=== PATIENT | female | born 1960 | race Caucasian/White ===

== ENCOUNTER 2019-02-28 12:26 | Outpatient (CLI) | payer BC ==
--- NOTE | 2019-02-28 16:20 | Mammography Report ---
Reason: RT UPPER INNER BREAST LUMP Procedure Date: 02/28/2019 Accession Number: [id number] / [id number] Procedure: GRIS - Diagnostic Dig Bilat CPT Code: FULL RESULT: EXAM: Diagnostic Dig Bilat, Breast Unilateral Limited DATE: 02/28/2019 1:30 PM CLINICAL HISTORY: 58-year-old with palpable lump upper inner left breast. Subpectoral saline implants. TECHNIQUE: (B) - Bilateral CC and MLO views were obtained. Additional spot magnified left CC; MLO spot compression was not performed due to presence of implant. Real-time targeted ultrasound was performed in the region of symptoms. Sewage Screen Operator images were obtained. COMPARISON: 05/20/2018 through 02/02/2016 PARENCHYMAL PATTERN: (D) - The breasts demonstrate heterogeneously dense fibroglandular parenchyma bilaterally. FINDINGS: Bilateral breasts: There are intact bilateral subpectoral saline implants. There are no suspicious masses, calcifications, or areas of distortion. There is no mammographic finding in the region of palpable lump per patient marked with a skin marker posterior upper inner left breast. Left breast: Targeted ultrasound is performed in the region of palpable lump and focal tenderness in a wide area and only normal tissues are noted. Sewage Screen Operator normal images obtained from 10:00 12 cm from nipple. IMPRESSION: Bilateral breasts: Stable benign imaging findings. No imaging finding of concern in the left breast at site of symptoms. Benign findings. BI-RADS category 2. Recommend annual screening mammography. RECOMMENDATION: (ANNUAL) - Recommend routine annual screening mammography. Clinical follow-up for left breast symptoms is also recommended. BI-RADS CATEGORY: (2) - Benign Findings. STANDARD QUALIFYING STATEMENTS: 1. This examination was not reviewed with the aid of Computer-Aided Detection (CAD). 2. A negative or benign imaging report should not preclude biopsy if clinically suspicious findings are present. 3. Dense breasts may obscure an underlying neoplasm. 4. This examination was reviewed with the aid of 3D breast imaging (tomosynthesis).
--- NOTE | 2019-03-03 06:22 | Ultrasound Report ---
Reason: LEFT BREAST Procedure Date: 02/28/2019 Accession Number: [id number] / [id number] Procedure: US - Breast Unilateral Limited CPT Code: FULL RESULT: EXAM: Diagnostic Dig Bilat, Breast Unilateral Limited DATE: 02/28/2019 1:30 PM CLINICAL HISTORY: 58-year-old with palpable lump upper inner left breast. Subpectoral saline implants. TECHNIQUE: (B) - Bilateral CC and MLO views were obtained. Additional spot magnified left CC; MLO spot compression was not performed due to presence of implant. Real-time targeted ultrasound was performed in the region of symptoms. Measurement Coordinator images were obtained. COMPARISON: 05/20/2018 through 02/02/2016 PARENCHYMAL PATTERN: (D) - The breasts demonstrate heterogeneously dense fibroglandular parenchyma bilaterally. FINDINGS: Bilateral breasts: There are intact bilateral subpectoral saline implants. There are no suspicious masses, calcifications, or areas of distortion. There is no mammographic finding in the region of palpable lump per patient marked with a skin marker posterior upper inner left breast. Left breast: Targeted ultrasound is performed in the region of palpable lump and focal tenderness in a wide area and only normal tissues are noted. Measurement Coordinator normal images obtained from 10:00 12 cm from nipple. IMPRESSION: Bilateral breasts: Stable benign imaging findings. No imaging finding of concern in the left breast at site of symptoms. Benign findings. BI-RADS category 2. Recommend annual screening mammography. RECOMMENDATION: (ANNUAL) - Recommend routine annual screening mammography. Clinical follow-up for left breast symptoms is also recommended. BI-RADS CATEGORY: (2) - Benign Findings. STANDARD QUALIFYING STATEMENTS: 1. This examination was not reviewed with the aid of Computer-Aided Detection (CAD). 2. A negative or benign imaging report should not preclude biopsy if clinically suspicious findings are present. 3. Dense breasts may obscure an underlying neoplasm. 4. This examination was reviewed with the aid of 3D breast imaging (tomosynthesis).
== END 2019-02-28 12:27 | disposition home or self-care (01) ==
LOC: DI 12:26
PROVIDERS: ATTEND Physician Assistant
DX: N63.22 Unspecified lump in the left breast, upper inner quadrant (principal)
CPT/HCPCS: 76642; 77066

== ENCOUNTER 2020-01-14 13:58 | Outpatient (CLI) | payer BC ==
--- NOTE | 2020-01-14 17:38 | DEXA Report ---
Reason: POSTMENOPAUSAL Procedure Date: 01/14/2020 Accession Number: [id number] / [id number] Procedure: DEX - Dexa Spine and/or Hip CPT Code: Final Report FULL RESULT: PROCEDURE: Dexa Spine and/or Hip INDICATIONS: POSTMENOPAUSAL TECHNIQUE: Dual energy x-ray absorptiometry (DXA) was performed on a [employer] System. Regions measured are the AP Spine, femoral neck, and if needed forearm. COMPARISON: None. FINDINGS: Lumbar Spine: Bone Mineral Density 0.863 g/cm/cm,T score -2.6, osteoporosis Left Hip: Bone Mineral Density 0.794 g/cm/cm,T score -1.7, osteopenia Left Femoral Neck: Bone Mineral Density 0.725 g/cm/cm, T score -2.3, osteopenia (T score greater or equal to -1.0: NORMAL) (T score from -1.1 to -2.4: OSTEOPENIA) (T score less than or equal to -2.5 to: OSTEOPOROSIS) Impression: Osteoporosis puts the patient in a high-risk of fracture. Patients with diagnosis of osteoporosis or osteopenia should have regular bone mineral density assessment. For those eligible for Medicare, routine testing is allowed once every 2 years. Testing frequency can be increased for patients who have rapidly progressing disease or for those who are receiving medical therapy to restore bone mass. Reviewed by: Stephanie Donovan MD on 01/14/2020 5:37 PM PDT Approved by: Stephanie Donovan MD on 01/14/2020 5:37 PM PDT Station ID: [id number]
== END 2020-01-14 13:59 | disposition home or self-care (01) ==
LOC: DI 13:58
PROVIDERS: ATTEND Physician Assistant
DX: M81.0 Age-related osteoporosis without current pathological fracture (principal); M85.88 Other specified disorders of bone density and structure, other site
CPT/HCPCS: 77080

== ENCOUNTER 2020-02-11 13:55 | Outpatient (CLI) | payer BC ==
[2020-02-11 14:15] LABS: VBG PH 7.337 (7.31-7.41)
[2020-02-11 14:39] LABS: HB2 TOTAL 14.4 g/dL; HEMOGLOBIN A1C 0.49 g/dL; HEMOGLOBIN A1C % 5.3 % (4.6-6.2)
== END 2020-02-11 13:56 | disposition home or self-care (01) ==
LOC: LAB 13:55
PROVIDERS: ATTEND Physician Assistant
DX: E83.52 Hypercalcemia (principal); Z83.3 Family history of diabetes mellitus
CPT/HCPCS: 36415; 82330; 83036; 83970

== ENCOUNTER 2020-10-19 07:00 | Outpatient (CLI) | payer BC | END 2020-10-19 23:59 | disposition home or self-care (01) | LOC: LAB.R 07:00 | PROVIDERS: ATTEND Family Medicine | DX: R05 Cough (principal); Z20.822 Contact with and (suspected) exposure to COVID-19 ==

== ENCOUNTER 2021-02-12 09:07 | Outpatient (CLI) | payer BC ==
[2021-02-12 13:40] LABS: EOSINOPHILS # (AUTO) 0.2 10^3/uL (0.0-0.7); EOSINOPHILS % (AUTO) 3.7 %; HCT - HEMATOCRIT 44.2 % (37.0-47.0); LYMPHOCYTES # (AUTO) 1.5 10^3/uL (1.5-3.5); LYMPHOCYTES % (AUTO) 37.8 %; MEAN CORPUSCULAR HEMOGLOBIN 28.8 pg (27.0-31.0); MEAN CORPUSCULAR HGB CONC 31.7 g/dL (32.0-36.0); MEAN CORPUSCULAR VOLUME 90.9 fL (81.0-99.0); MEAN PLATELET VOLUME 12.7 fL (7.9-10.8); MONOCYTES # (AUTO) 0.3 10^3/uL (0.0-1.0); MONOCYTES % (AUTO) 6.4 %; NEUTROPHILS # (AUTO) 2.1 10^3/uL (1.5-6.6); NEUTROPHILS % (AUTO) 50.9 %; PLT - PLATELET COUNT 205 10^3/uL (130-450); RED BLOOD COUNT 4.86 10^6/uL (4.20-5.40); RED CELL DISTRIBUTION WIDTH 12.8 % (12.0-15.0); WHITE BLOOD COUNT 4.1 x10^3/uL (4.8-10.8)
[2021-02-12 13:55] LABS: ALBUMIN 4.3 g/dL (3.2-5.5); ALBUMIN/GLOBULIN RATIO 1.3 (1.0-2.2); ALKALINE PHOSPHATASE 52 IU/L (42-121); ALT ALANINE AMINOTRANSFERASE 23 IU/L (10-60); AST ASPARTATE AMINOTRANSFERASE 21 IU/L (10-42); BILIRUBIN,TOTAL 1.2 mg/dL (0.2-1.0); BUN - BLOOD UREA NITROGEN 18 mg/dL (6-20); CALCIUM 9.8 mg/dL (8.5-10.3); CARBON DIOXIDE - CO2 31 mmol/L (21-32); CHLORIDE 105 mmol/L (101-111); CHOL/HDL RATIO 3.5 (<4.4); CHOLESTEROL 199 mg/dL; CREATININE 0.7 mg/dL (0.4-1.0); GFR - MDRD 86 (>89); GLUCOSE 91 mg/dL (70-100); HDL CHOLESTEROL 57 mg/dL; LDL CHOLESTEROL,CALCULATED 110 mg/dL; LDL/HDL RATIO 1.9 (<4.4); POTASSIUM 4.1 mmol/L (3.5-5.0); SODIUM 142 mmol/L (135-145); TOTAL PROTEIN 7.6 g/dL (6.7-8.2); TRIGLYCERIDES 159 mg/dL; VLDL CHOLESTEROL 32 mg/dL
== END 2021-02-12 09:08 | disposition home or self-care (01) ==
LOC: LAB.N 09:07
PROVIDERS: ATTEND Family Medicine
DX: E78.5 Hyperlipidemia, unspecified (principal); E83.52 Hypercalcemia; K58.9 Irritable bowel syndrome, unspecified
CPT/HCPCS: 36415; 80053; 80061; 82306; 82330; 83721; 83970; 85025

== ENCOUNTER 2021-03-25 12:57 | Outpatient (CLI) | payer BC ==
--- NOTE | 2021-03-28 10:17 | Mammography Report ---
BILATERAL DIGITAL SCREENING MAMMOGRAM 3D/2D WITH AUGMENTATION: 03/25/2021 CLINICAL: Routine screening. Comparison is made to exams dated: 02/28/2019 ultrasound, 02/28/2019 mammogram - [facility], 05/20/2018 mammogram, 03/16/2017 mammogram, and 02/02/2016 mammogram - [facility]. There are scattered fibroglandular elements in both breasts. No significant masses, calcifications, or other findings are seen in either breast. There has been no significant interval change. IMPRESSION: NEGATIVE There is no mammographic evidence of malignancy. A 1 year screening mammogram is recommended. This exam was interpreted at Station ID: [id number]. NOTE: For mammograms, a report in lay terms will be sent to the patient. Approximately 15% of breast malignancies will not be visualized mammographically. In the management of a palpable breast mass, a negative mammogram must not discourage biopsy of a clinically suspicious lesion. Electronically Signed By: Hossein Corona M.D., jr/javier:03/25/2021 14:12:54 ACR BI-RADS Category 1: Negative 3341F PARENCHYMAL PATTERN: (A) - The breast(s) demonstrate(s) scattered fibroglandular densities. BI-RADS CATEGORY: (1) - 1 RECOMMENDATION: (ANNUAL) - Recommend routine annual screening mammography. [id number] 1 year screening LATERALITY: (B)
== END 2021-03-25 12:58 | disposition home or self-care (01) ==
LOC: DI 12:57
DX: Z12.31 Encounter for screening mammogram for malignant neoplasm of breast (principal)

== ENCOUNTER 2022-03-27 13:27 | Outpatient (CLI) | payer BC ==
--- NOTE | 2022-03-28 10:06 | Mammography Report ---
BILATERAL DIGITAL SCREENING MAMMOGRAM 3D/2D: 03/27/2022 CLINICAL: Routine screening. Implants removed 2020. Comparison is made to exams dated: 03/25/2021 mammogram, 02/28/2019 mammogram - [facility], 05/20/2018 mammogram, 03/16/2017 mammogram, and 02/02/2016 mammogram - [facility]. Both breasts are heterogeneously dense, which may obscure small masses (category c / 51-75% glandula r tissue). No significant masses, calcifications, or other findings are seen in either breast. Bilateral breast implants have been removed. IMPRESSION: NEGATIVE There is no mammographic evidence of malignancy. A 1 year screening mammogram is recommended. Based on the Tyrer Cuzick model (a risk assessment model) the patients lifetime risk is 9.3% and her 10 year risk is 3.6%. According to the ACR, ACS, and NCCN guidelines, an annual breast MRI exam ender g with mammogram is recommended if the patients lifetime risk is 20% or greater. This exam was interpreted at Station ID: [id number]. NOTE: For mammograms, a report in lay terms will be sent to the patient. Approximately 15% of breast malignancies will not be visualized mammographically. In the management of a palpable breast mass, a negative mammogram must not discourage biopsy of a clinically suspicious lesion. Electronically Signed By: Abram Rinaldi M.D. aty/:03/27/2022 22:39:44 ACR BI-RADS Category 1: Negative 3341F PARENCHYMAL PATTERN: (D) - The breast(s) demonstrate(s) heterogeneously dense fibroglandular thor faust. BI-RADS CATEGORY: (1) - 1 RECOMMENDATION: (ANNUAL) - Recommend routine annual screening mammography. [id number] 1 year screening LATERALITY: (B)
== END 2022-03-27 13:28 | disposition home or self-care (01) ==
LOC: DI 13:27
PROVIDERS: ATTEND Nurse Practitioner
DX: Z12.31 Encounter for screening mammogram for malignant neoplasm of breast (principal)

== ENCOUNTER 2022-06-26 07:19 | Outpatient (CLI) | payer BC ==
[2022-06-26 07:35] LABS: BASOPHILS % (AUTO) 0.9 %; EOSINOPHILS # (AUTO) 0.2 10^3/uL (0.0-0.7); EOSINOPHILS % (AUTO) 3.9 %; HGB - HEMOGLOBIN 14.7 g/dL (12.0-16.0); LYMPHOCYTES # (AUTO) 1.9 10^3/uL (1.5-3.5); MEAN CORPUSCULAR HEMOGLOBIN 29.5 pg (27.0-31.0); MEAN CORPUSCULAR HGB CONC 32.7 g/dL (32.0-36.0); MEAN CORPUSCULAR VOLUME 90.2 fL (81.0-99.0); MEAN PLATELET VOLUME 11.1 fL (7.9-10.8); MONOCYTES # (AUTO) 0.3 10^3/uL (0.0-1.0); MONOCYTES % (AUTO) 7.3 %; NEUTROPHILS % (AUTO) 44.7 %; PLT - PLATELET COUNT 223 10^3/uL (130-450); RED BLOOD COUNT 4.99 10^6/uL (4.20-5.40); RED CELL DISTRIBUTION WIDTH 11.7 % (12.0-15.0); WHITE BLOOD COUNT 4.4 x10^3/uL (4.8-10.8)
[2022-06-26 07:51] LABS: ALBUMIN 4.6 g/dL (3.2-5.5); ALBUMIN/GLOBULIN RATIO 1.3 (1.0-2.2); ALKALINE PHOSPHATASE 43 IU/L (42-121); ALT ALANINE AMINOTRANSFERASE 21 IU/L (10-60); AST ASPARTATE AMINOTRANSFERASE 19 IU/L (10-42); BILIRUBIN,TOTAL 1.7 mg/dL (0.2-1.0); BUN - BLOOD UREA NITROGEN 22 mg/dL (6-20); CALCIUM 10.1 mg/dL (8.5-10.3); CARBON DIOXIDE - CO2 30 mmol/L (21-32); CHLORIDE 102 mmol/L (101-111); CHOL/HDL RATIO 2.9 (<4.4); CHOLESTEROL 196 mg/dL; CREATININE 0.8 mg/dL (0.4-1.0); GFR - MDRD 73 (>89); GLUCOSE 101 mg/dL (70-100); HDL CHOLESTEROL 67 mg/dL; LDL CHOLESTEROL,CALCULATED 112 mg/dL; LDL/HDL RATIO 1.7 (<4.4); POTASSIUM 4.2 mmol/L (3.5-5.0); SODIUM 141 mmol/L (135-145); TOTAL PROTEIN 8.1 g/dL (6.7-8.2); TRIGLYCERIDES 86 mg/dL; VLDL CHOLESTEROL 17 mg/dL
[2022-06-26 08:03] LABS: THYROID STIMULATING HORMONE 1.94 uIU/mL (0.34-5.60)
== END 2022-06-26 07:20 | disposition home or self-care (01) ==
LOC: LAB 07:19
PROVIDERS: ATTEND Nurse Practitioner
DX: E78.5 Hyperlipidemia, unspecified (principal); R53.83 Other fatigue
CPT/HCPCS: 36415; 80053; 80061; 83721; 84443; 85025

== ENCOUNTER 2022-08-10 14:41 | Outpatient (CLI) | payer BC ==
--- NOTE | 2022-08-10 17:12 | DEXA Report ---
PROCEDURE: Dexa Spine and/or Hip INDICATIONS: OSTEOPOROSIS TECHNIQUE: Dual energy x-ray absorptiometry (DXA) was performed on a [employer] System. Regions measur ed are the AP Spine, femoral neck, and if needed forearm. COMPARISON: 01/14/2020 FINDINGS: Lumbar Spine: Bone Mineral Density 0.87 g/cm/cm,T score -2.5, previously -2.6 Left Femoral Neck: Bone Mineral Density 0.71 g/cm/cm, T score -2.3, previously -2.3 Left Hip: Bone Mineral Density 0.8 g/cm/cm,T score -1.6, previously -1.7 (T score greater or equal to -1.0: NORMAL) (T score from -1.1 to -2.4: OSTEOPENIA) (T score less than or equal to -2.5 to: OSTEOPOROSIS) Impression: Similar osteoporosis of the lumbar spine and osteopenia of the left femoral neck and hip, elevated fr acture risk. Patients with diagnosis of osteoporosis or osteopenia should have regular bone mineral density assess ment. For those eligible for Medicare, routine testing is allowed once every 2 years. Testing frequ ency can be increased for patients who have rapidly progressing disease or for those who are receivin g medical therapy to restore bone mass. Reviewed by: Emile Durham MD on 08/10/2022 5:11 PM PST Approved by: Emile Durham MD on 08/10/2022 5:11 PM PST Station ID: [id number]
== END 2022-08-10 14:42 | disposition home or self-care (01) ==
LOC: DI 14:41
PROVIDERS: ATTEND Nurse Practitioner
DX: M81.0 Age-related osteoporosis without current pathological fracture (principal)

== ENCOUNTER 2022-11-25 02:32 | Emergency (ER) | payer BC ==
[2022-11-25] MEDS ORDERED: ONDANSETRON 4 MG/2 ML VIAL IVP STA (02:54)
[2022-11-25] MEDS ORDERED: SODIUM CHLORIDE 0.9% 1,000 ML IV STA (02:54)
[2022-11-25 03:04] LABS: BASOPHILS % (AUTO) 0.3 %; EOSINOPHILS # (AUTO) 0.1 10^3/uL (0.0-0.7); EOSINOPHILS % (AUTO) 0.9 %; HCT - HEMATOCRIT 42.5 % (37.0-47.0); HGB - HEMOGLOBIN 13.8 g/dL (12.0-16.0); LYMPHOCYTES # (AUTO) 0.3 10^3/uL (1.5-3.5); LYMPHOCYTES % (AUTO) 4.1 %; MEAN CORPUSCULAR HEMOGLOBIN 29.4 pg (27.0-31.0); MEAN CORPUSCULAR HGB CONC 32.5 g/dL (32.0-36.0); MEAN CORPUSCULAR VOLUME 90.6 fL (81.0-99.0); MEAN PLATELET VOLUME 11.1 fL (7.9-10.8); MONOCYTES # (AUTO) 0.2 10^3/uL (0.0-1.0); MONOCYTES % (AUTO) 2.3 %; NEUTROPHILS # (AUTO) 7.2 10^3/uL (1.5-6.6); NEUTROPHILS % (AUTO) 92.1 %; PLT - PLATELET COUNT 177 10^3/uL (130-450); RED BLOOD COUNT 4.69 10^6/uL (4.20-5.40); RED CELL DISTRIBUTION WIDTH 12.4 % (12.0-15.0); WHITE BLOOD COUNT 7.8 x10^3/uL (4.8-10.8)
--- NOTE | 2022-11-25 03:06 | ED Physician Documentation ---
History of Present Illness - Stated complaint Stated Complaint: VOMITING, DIARRHEA, L LEG PAIN - Chief complaint Chief Complaint: General - History obtained from History obtained from: Patient - Additonal information Additional information: Patient is a 62-year-old female with a history of high cholesterol presenting for evaluation of nausea, vomiting and diarrhea starting last night at 7 PM. Patient states her symptoms started with several episodes of emesis while she was eating dinner at a friend's house. No one else was getting sick. She then developed diarrhea which she states she has had more than 6 episodes of. She denies blood in emesis or stools.She was feeling a cramping discomfort in her left leg and her significant other was giving her massage and was concerned that there was discoloration which could be from a blood clot. This prompted her to come to the emergency department this evening. Patient denies a history of PE or DVT. Denies history of travel or recent immobilization.She denies fever, chest pain, shortness of breath, dysuria, back pain, abdominal pain.She reports having ongoing cramps or discomfort in her legs primarily at night and sometimes feeling restless legs. Review of Systems Constitutional: denies: Fever Cardiac: denies: Chest pain / pressure Respiratory: denies: Dyspnea, Cough GI: reports: Nausea, Vomiting, Diarrhea. denies: Abdominal Pain, Bloody / black stool : denies: Dysuria Musculoskeletal: reports: Extremity pain. denies: Back pain PD PAST MEDICAL HISTORY - Present Medications Home Medications: Ambulatory Orders Medication Instructions Recorded Confirmed Atorvastatin [Lipitor] 0 mg 11/25/22 Escitalopram Oxalate [Lexapro] 5 mg PO 11/25/22 Ondansetron Odt [Zofran] 4 mg TL Q6H PRN #10 tablet 11/25/22 - Allergies Allergies/Adverse Reactions: Allergies Allergy/AdvReac Type Severity Reaction Status Date / Time propoxyphene [From Darvon] AdvReac Hallucinati Verified 11/25/22 02:42 ons PD ED PE NORMAL - General General: Alert and oriented X 3, No acute distress, Well developed/nourished - HEENT HEENT: Atraumatic - Neck Neck: Supple, no meningeal sign - Cardiac Cardiac: RRR, No murmur, Strong equal pulses - Respiratory Respiratory: No respiratory distress, Clear bilaterally - Abdomen Abdomen: Normal bowel sounds, Soft, Non tender, Non distended - Derm Derm: Warm and dry - Extremities Extremities: Normal ROM s pain, No edema, No calf tenderness / cord, Other (Varicose veins to left posterior thigh) - Neuro Neuro: Alert and oriented X 3, No motor deficit, Normal speech Results - Vitals Vitals: Vital Signs - 24 hr 11/25/22 11/25/22 11/25/22 02:37 03:00 04:05 Temperature 36.8 C Heart Rate 103 H 104 H 105 H Respiratory 19 19 21 Rate Blood Pressure 125/59 L 110/72 106/68 O2 Saturation 97 96 99 Oxygen O2 Source Room air - Labs Labs: Laboratory Tests 11/25/22 11/25/22 11/25/22 02:58 02:58 02:58 WBC 7.8 RBC 4.69 Hgb 13.8 Hct 42.5 MCV 90.6 MCH 29.4 MCHC 32.5 RDW 12.4 Plt Count 177 MPV 11.1 H Neut # (Auto) 7.2 H Lymph # (Auto) 0.3 L Jerauld # (Auto) 0.2 Eos # (Auto) 0.1 Baso # (Auto) 0.0 Absolute Nucleated RBC 0.00 Nucleated RBC % 0.0 D-Dimer < 200.0 L Sodium 140 Potassium 3.3 L Chloride 98 L Carbon Dioxide 28 Anion Gap 14.0 H BUN 24 H Creatinine 0.8 Estimated GFR (MDRD) 73 L Glucose 124 H Calcium 9.5 Total Bilirubin 1.6 H AST 19 ALT 22 Alkaline Phosphatase 46 Total Protein 7.7 Albumin 4.4 Globulin 3.3 Albumin/Globulin Ratio 1.3 Lipase 34 PD Medical Decision Making - ED course Complexity details: re-evaluated patient, d/w patient ED course: Patient presenting for evaluation of vomiting and diarrhea along with left leg pain. On exam no clinical findings to suggest DVT. D-dimer is also negative which is reassuring. Vital signs were reviewed and she is slightly tachycardic but otherwise stable vital signs. No chest pain or shortness of breath. CBC and chemistries were obtained with mild hypokalemia.Suspect that dehydration is the cause of the slightly low chloride causing the anion gap of 14. BUN and T. bili have been slightly elevated on prior labs also. Her abdominal exam remained benign. Patient states that she is feeling much better after IV fluids and Zofran. She tolerated a p.o. challenge and potassium was supplemented orally. Patient was counseled on continued supportive care as well as concerning symptoms to return for. Departure - Departure Disposition: 01 Home, Self Care Clinical Impression: Nausea vomiting and diarrhea, Leg cramps Condition: Stable Instructions: ED Muscle Pain Leg Cramps, ED Vomiting Diarrhea Nonspecific Ad Prescriptions: Ondansetron Odt [Zofran] 4 mg TL Q6H PRN #10 tablet PRN Reason: Nausea / Vomiting Comments: Your potassium was slightly low so we gave you a potassium pill.Otherwise your labs do not show any significant abnormalities. We also did check a blood test for signs of a blood clot and this was negative. Your symptoms may be related to a virus or something you ate that is not settling well with you causing the vomiting and diarrhea. Please continue to stay hydrated. I have sent a medication to help with the nausea to [facility] in [place].If it anytime you develop any new or worsening symptoms please return to the emergency department.
[2022-11-25 03:17] LABS: ALBUMIN 4.4 g/dL (3.2-5.5); ALBUMIN/GLOBULIN RATIO 1.3 (1.0-2.2); BILIRUBIN,TOTAL 1.6 mg/dL (0.2-1.0); CALCIUM 9.5 mg/dL (8.5-10.3); CREATININE 0.8 mg/dL (0.4-1.0); POTASSIUM 3.3 mmol/L (3.5-5.0); TOTAL PROTEIN 7.7 g/dL (6.7-8.2)
[2022-11-25] MEDS ORDERED: POTASSIUM CHLORIDE 20 MEQ TABLET PO STA (03:44)
[2022-11-25] MEDS ORDERED: ONDANSETRON ODT 4 MG Prepack 2 TL PRN (03:45)
[2022-11-25 04:08] VITALS: BP 106/68
== END 2022-11-25 04:05 | disposition home or self-care (01) ==
LOC: ED 02:32
DX: R11.2 Nausea with vomiting, unspecified (principal); R19.7 Diarrhea, unspecified; R25.2 Cramp and spasm; E87.6 Hypokalemia
CPT/HCPCS: 36415; 80053; 83690; 85025; 85379; 96374; 99284; A9270

== ENCOUNTER 2023-01-31 08:11 | Outpatient (CLI) | payer BC ==
--- NOTE | 2023-02-01 11:38 | Ultrasound Report ---
LIMITED ULTRASOUND OF LEFT BREAST: 01/31/2023 CLINICAL: Palpable left breast lump. Comparison is made to exams dated: 03/27/2022 mammogram, 03/25/2021 mammogram, and 02/28/2019 [facility]. Color flow ultrasound of the left breast 11 o'clock region was performed. Bernard scale images of the real-time examination were reviewed. No significant abnormalities were seen sonographically in the left breast. IMPRESSION: NEGATIVE There is no sonographic evidence of malignancy. There is no abnormality seen in the left breast to correspond with the area of clinical concern, carrasco siobhan, clinical correlation and clinical followup are recommended. Return to annual mammogram screening schedule is recommended. This exam was interpreted at Station ID: [id number]. Electronically Signed By: Emile Durham M.D. lc/:01/31/2023 09:22:00 Ultrasound BI-RADS: 1 Negative BI-RADS CATEGORY: (1) - 1 Mammogram [id number] return to screening LATERALITY: (B)
--- NOTE | 2023-02-01 11:38 | Mammography Report ---
BILATERAL DIGITAL DIAGNOSTIC MAMMOGRAM 3D/2D: 01/31/2023 CLINICAL: Palpable left breast lump. Due for bilateral. Comparison is made to exams dated: 03/27/2022 mammogram, 03/25/2021 mammogram, 02/28/2019 mammogram - [facility], 05/20/2018 mammogram, 03/16/2017 mammogram, and 02/02/2016 mammogram - [facility]. Both breasts are heterogeneously dense, which may obscure small masses (category c / 51-75% glandular tissue). No significant masses, calcifications, or other findings are seen in either breast. IMPRESSION: INCOMPLETE: NEEDS ADDITIONAL IMAGING EVALUATION There is no abnormality seen in the left breast to correspond with the area of clinical concern, carrasco siobhan, ultrasound is recommended. Based on the Tyrer Cuzick model (a risk assessment model) the patients lifetime risk is 9.1% and her 10 year risk is 3.7%. According to the ACR, ACS, and NCCN guidelines, an annual breast MRI exam ender g with mammogram is recommended if the patients lifetime risk is 20% or greater. This exam was interpreted at Station ID: [id number]. NOTE: For mammograms, a report in lay terms will be sent to the patient. Approximately 15% of breast malignancies will not be visualized mammographically. In the management of a palpable breast mass, a negative mammogram must not discourage biopsy of a clinically suspicious lesion. Electronically Signed By: Emile rutherford/penrad:01/31/2023 09:21:08 ACR BI-RADS Category 0: Incomplete 3340F PARENCHYMAL PATTERN: (D) - The breast(s) demonstrate(s) heterogeneously dense fibroglandular thor faust. BI-RADS CATEGORY: (0) - 0 Ultrasound [id number] Immediate follow-up LATERALITY: (B)
== END 2023-01-31 08:12 | disposition home or self-care (01) ==
LOC: DI 08:11
PROVIDERS: ATTEND Physician Assistant
DX: N63.22 Unspecified lump in the left breast, upper inner quadrant (principal)

== ENCOUNTER 2024-02-04 14:56 | Outpatient (CLI) | payer BC ==
--- NOTE | 2024-02-06 10:47 | Mammography Report ---
BILATERAL DIGITAL SCREENING MAMMOGRAM 3D/2D: 02/04/2024 CLINICAL: Routine screening. Comparison is made to exams dated: 01/31/2023 mammogram, 03/27/2022 mammogram, 03/25/2021 mammogram, mammogram - [facility], 05/20/2018 mammogram, and 03/16/2017 mammogram - [facility]. Both breasts are heterogeneously dense, which may obscure small masses (category c / 51-75% glandular tissue). No significant masses, calcifications, or other findings are seen in either breast. There has been no significant interval change. IMPRESSION: NEGATIVE There is no mammographic evidence of malignancy. A 1 year screening mammogram is recommended. Based on the Tyrer Cuzick model (a risk assessment model) the patient's lifetime risk is 9.1% and her 10 year risk is 3.8%. According to the ACR, ACS, and NCCN guidelines, an annual breast MRI exam ender g with mammogram is recommended if the patient's lifetime risk is 20% or greater. This exam was interpreted at Station ID: [id number]. NOTE: For mammograms, a report in lay terms will be sent to the patient. Approximately 15% of breast malignancies will not be visualized mammographically. In the management of a palpable breast mass, a negative mammogram must not discourage biopsy of a clinically suspicious lesion. Electronically Signed By: Stephanie davison/javier:02/05/2024 09:18:42 letter sent: No_Letter ACR BI-RADS Category 1: Negative 3341F PARENCHYMAL PATTERN: (D) - The breast(s) demonstrate(s) heterogeneously dense fibroglandular thor faust. BI-RADS CATEGORY: (1) - 1 RECOMMENDATION: (ANNUAL) - Recommend routine annual screening mammography. [id number] 1 year screening LATERALITY: (B)
== END 2024-02-04 14:57 | disposition home or self-care (01) ==
LOC: DI 14:56
PROVIDERS: ATTEND Nurse Practitioner
DX: Z12.31 Encounter for screening mammogram for malignant neoplasm of breast (principal); R92.333 Mammographic heterogeneous density, bilateral breasts

== ENCOUNTER 2024-02-15 07:18 | Outpatient (CLI) | payer BC ==
[2024-02-15 07:28] LABS: BASOPHILS # (AUTO) 0.1 10^3/uL (0.0-0.1); BASOPHILS % (AUTO) 1.2 %; EOSINOPHILS # (AUTO) 0.5 10^3/uL (0.0-0.7); HCT - HEMATOCRIT 41.1 % (37.0-47.0); HGB - HEMOGLOBIN 13.7 g/dL (12.0-16.0); LYMPHOCYTES # (AUTO) 1.9 10^3/uL (1.5-3.5); LYMPHOCYTES % (AUTO) 39.7 %; MEAN CORPUSCULAR HEMOGLOBIN 29.8 pg (27.0-31.0); MEAN CORPUSCULAR HGB CONC 33.3 g/dL (32.0-36.0); MEAN CORPUSCULAR VOLUME 89.5 fL (81.0-99.0); MEAN PLATELET VOLUME 10.5 fL (7.9-10.8); MONOCYTES # (AUTO) 0.4 10^3/uL (0.0-1.0); MONOCYTES % (AUTO) 7.2 %; NEUTROPHILS % (AUTO) 40.9 %; PLT - PLATELET COUNT 214 10^3/uL (130-450); RED BLOOD COUNT 4.59 10^6/uL (4.20-5.40); RED CELL DISTRIBUTION WIDTH 12.4 % (12.0-15.0); WHITE BLOOD COUNT 4.9 x10^3/uL (4.8-10.8)
[2024-02-15 07:45] LABS: CHOL/HDL RATIO 2.9 (<4.4); CHOLESTEROL 172 mg/dL; HDL CHOLESTEROL 60 mg/dL; LDL CHOLESTEROL,CALCULATED 91 mg/dL; LDL/HDL RATIO 1.5 (<4.4); TRIGLYCERIDES 106 mg/dL; VLDL CHOLESTEROL 21 mg/dL
[2024-02-15 07:57] LABS: THYROID STIMULATING HORMONE 2.21 uIU/mL (0.34-5.60)
[2024-02-15 08:05] LABS: ALBUMIN 4.2 g/dL (3.2-5.5); ALBUMIN/GLOBULIN RATIO 1.4 (1.0-2.2); ALKALINE PHOSPHATASE 62 IU/L (42-121); ALT ALANINE AMINOTRANSFERASE 20 IU/L (10-60); AST ASPARTATE AMINOTRANSFERASE 15 IU/L (10-42); BILIRUBIN,TOTAL 0.9 mg/dL (0.2-1.0); BUN - BLOOD UREA NITROGEN 21 mg/dL (6-20); CARBON DIOXIDE - CO2 32 mmol/L (21-32); CHLORIDE 105 mmol/L (101-111); CREATININE 0.8 mg/dL (0.6-1.3); GFR - MDRD 73 (>89); GLUCOSE 105 mg/dL (74-104); POTASSIUM 4.4 mmol/L (3.5-4.5); SODIUM 142 mmol/L (135-145); TOTAL PROTEIN 7.1 g/dL (6.4-8.9)
== END 2024-02-15 07:19 | disposition home or self-care (01) ==
LOC: LAB 07:18
PROVIDERS: ATTEND Nurse Practitioner
DX: Z00.00 Encounter for general adult medical examination without abnormal findings (principal); E78.5 Hyperlipidemia, unspecified; R53.83 Other fatigue
CPT/HCPCS: 36415; 80053; 80061; 82607; 83721; 84443; 85025